=== PATIENT | male | born 1950 | race Caucasian/White ===

== ENCOUNTER 2023-03-22 14:54 | Emergency (ER) | payer MEDICARE, SELFPAY ==
[2023-03-22] VITALS (10 sets, daily range): BP systolic 132–155; BP diastolic 78–114; PULSE 60–71; RESP 18; TEMP 36.4; O2SAT 90–98; BMI 30.4
--- NOTE | 2023-03-22 15:14 | ED_ITS ---
HPI - General Adult General Time Seen by Provider: 15:14 <Maame Malik MD - Last Filed: 03/22/23 16:23> Date Seen: 03/22/23 <Maame Malik MD - Last Filed: 03/22/23 16:23> Chief complaint: Shoulder Injury/Pain <Maame Malik MD - Last Filed: 03/22/23 16:23> Stated complaint: L shoulder pain, shortness of breath <Maame Malik MD - Last Filed: 03/22/23 16:23> Time Seen by Provider: 03/22/23 15:11 <Maame Malik MD - Last Filed: 03/22/23 16:23> Source: patient and RN notes reviewed <Maame Malik MD - Last Filed: 03/22/23 16:23> Mode of arrival: ambulatory <Maame Malik MD - Last Filed: 03/22/23 16:23> Limitations: no limitations <Maame Malik MD - Last Filed: 03/22/23 16:23> History of Present Illness HPI narrative: This 72-year-old male was referred to the ER by clinic with shoulder pain that has been going on for about 3-4 weeks, some worsening of shortness of breath. 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 His left shoulder certainly has symptoms of pain with range of motion that he is convinced is musculoskeletal. He however has been having pain in bed just at night. He has not had any x-rays of the shoulder. There is no numbness tingling or weakness. There is no chest pain per se. 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 He had a 1st episode, was given a trial off of blood thinners after appropriate time frame and had a subsequent pulmonary embolus. He notes that he was drinking a lot of nutritional supplements that had vitamin K in at the time. His dad reportedly had blood clots as well. [place] himself was studied, had genetic testing, they never did find a source or etiology, he states his is idiopathic. He has been maintained on anticoagulation with Coumadin, denies any missed doses, states he gets routine INR checks. He is notice seen some progressive shortness of breath over time. He notes if he gets up in the middle night going to the bathroom and coming back, will feel winded. Just going up a flight of stairs he will feel much more winded. He notes he had a normal stress set go about a year and half ago. No prior cardiac history. Again no chest pain with this. He does not endorse any significant edema. Besides having history of blood clots, his dad reportedly from congestive heart failure. <Maame Malik MD - Last Filed: 03/22/23 16:23> Related Data Home medications: Home Medications Medication Instructions Recorded Confirmed warfarin 5 mg tablet 5 mg PO 07/17/22 Previous Rx's Medication Instructions Recorded furosemide 20 mg tablet (Lasix) 20 mg PO DAILY #14 tabs 03/22/23 <Maame Malik MD - Last Filed: 03/22/23 16:23> Allergies/adverse reactions: Allergies Allergy/AdvReac Type Severity Reaction Status Date / Time No Known Drug Allergies Allergy Verified 03/22/23 16:33 <Maame Malik MD - Last Filed: 03/22/23 16:23> Review of Systems Status of ROS: Reports: 6 or more systems reviewed and unremarkable except as noted in History and below <Maame Malik MD - Last Filed: 03/22/23 16:23> [facility] Social History: Social History Smoking Status: Never smoker How often do you have a drink containing alcohol: monthly or less How often do you have six or more drinks on one occasion: Never AUDIT-C Alcohol total score: 1 Non-prescribed substance use: denies use <Maame Malik MD - Last Filed: 03/22/23 16:23> Exam Const: Vital Signs, click to edit/add: Vital Signs - 24 hr 03/22/23 15:06 03/22/23 15:23 03/22/23 15:39 Temperature 97.6 F Pulse Rate 67 Pulse Rate [Right Pulse Oximeter] 69 Respiratory Rate 18 Blood Pressure 147/114 H Blood Pressure [Ri ght Upper Arm] 155/78 H Pulse Oximetry 97 96 97 Oxygen Delivery Me thod Room Air 03/22/23 15:40 03/22/23 15:45 03/22/23 16:00 Temperature Pulse Rate 67 71 66 Pulse Rate [Right Pulse Oximeter] Respiratory Rate Blood Pressure Blood Pressure [Ri ght Upper Arm] Pulse Oximetry 96 90 96 Oxygen Delivery Me thod 03/22/23 16:02 03/22/23 16:03 03/22/23 16:15 Temperature Pulse Rate 61 64 71 Pulse Rate [Right Pulse Oximeter] Respiratory Rate Blood Pressure 132/92 H Blood Pressure [Ri ght Upper Arm] Pulse Oximetry 98 97 96 Oxygen Delivery Me thod 03/22/23 16:45 Temperature Pulse Rate 60 Pulse Rate [Right Pulse Oximeter] Respiratory Rate Blood Pressure Blood Pressure [Ri ght Upper Arm] Pulse Oximetry 97 Oxygen Delivery Me thod [place] is a 72-year-old male that is alert, interactive, no apparent distress. Sclera clear, face atraumatic, speech is normal. Lungs are clear, good air entry, no wheezing or crackles. CV regular rate and rhythm with ectopy heard, no murmur, normal S1-S2, no S3-S4. No lower extremity edema, has a little bit of a sock line but really no appreciable pitting edema. Abdomen is soft, no pain on palpation of his clavicle or AC joint. He does not have pain when I do arc of abduction but when I do impingement testing of the rotator cuff, that does reproduce some of his pain. Neurovascular is definitely intact in this arm. He does have limitations of full extension at both elbows which is not new for him, states this is from his orthopedic injuries from gymnastics. <Maame Malik MD - Last Filed: 03/22/23 16:23> Vital Signs, click to edit/add: Vital Signs - 24 hr 03/22/23 15:06 03/22/23 15:23 03/22/23 15:39 Temperature 97.6 F Pulse Rate 67 Pulse Rate [Right Pulse Oximeter] 69 Respiratory Rate 18 Blood Pressure 147/114 H Blood Pressure [Ri ght Upper Arm] 155/78 H Pulse Oximetry 97 96 97 Oxygen Delivery Me thod Room Air 03/22/23 15:40 03/22/23 15:45 03/22/23 16:00 Temperature Pulse Rate 67 71 66 Pulse Rate [Right Pulse Oximeter] Respiratory Rate Blood Pressure Blood Pressure [Ri ght Upper Arm] Pulse Oximetry 96 90 96 Oxygen Delivery Me thod 03/22/23 16:02 03/22/23 16:03 03/22/23 16:15 Temperature Pulse Rate 61 64 71 Pulse Rate [Right Pulse Oximeter] Respiratory Rate Blood Pressure 132/92 H Blood Pressure [Ri ght Upper Arm] Pulse Oximetry 98 97 96 Oxygen Delivery Me thod 03/22/23 16:45 Temperature Pulse Rate 60 Pulse Rate [Right Pulse Oximeter] Respiratory Rate Blood Pressure Blood Pressure [Ri ght Upper Arm] Pulse Oximetry 97 Oxygen Delivery Me thod <Gallito Middleton MD - Last Filed: 03/22/23 17:29> Documenting provider has reviewed patient's vital signs: yes <Maame Malik MD - Last Filed: 03/22/23 16:23> Course Course ED Course: Reviewed with patient that I certainly think he does have musculoskeletal changes in his shoulder. We will x-ray to see if there is underlying arthritis. He certainly may have rotator cuff or ligamentous injury which ultimately he would be better defined by MRI but is not emergently indicated out of the ER. 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 As for recurrent pulmonary emboli, we did discuss that it is unlikely if he has been on chronically well maintained Coumadin. He is concerned, discussed the option of just proceeding with a chest CT PE protocol. He would like to do so. Will get full complement of labs including an INR. We did discuss complications of people with pulmonary emboli and development of such things like pulmonary hypertension. We cannot diagnose this but it would be a consideration. If workup here is negative, could talk to his primary care provider about next step such as proceeding with an echo outpatient. <Maame Malik MD - Last Filed: 03/22/23 16:23> Reevaluation(s) Time of Reevaluation #1: 17:25 <Gallito Middleton MD - Last Filed: 03/22/23 17:29> Reevaluation #1: Patient accepted in sign-out from prior provider. Briefly, 72-year-old male with history of pulmonary embolism currently anticoagulated comes in with left shoulder pain. Seems most consistent with musculoskeletal pain and chest x-ray independently interpreted by me demonstrates findings of calcific tendinitis. CT PE study does not demonstrate pulmonary embolism, there is some is a continuation of the lungs and reflux of the contrast in the padded veins suggestive of right heart pressure elevation, this could represent some mild congestive heart failure but patient has no lower extremity swelling, orthopnea, and is stable for discharge with outpatient follow-up, will be started on a low- dose of Lasix as he does have some shortness of breath. Recommend follow-up with primary care for echocardiogram. <Gallito Middleton MD - Last Filed: 03/22/23 17:29> Vital Signs Vital signs: Initial Vital Signs Temperature 97.6 F 03/22/23 15:06 Temperature Source Temporal Artery Scan 03/22/23 15:06 Pulse Rate 69 03/22/23 15:06 Respiratory Rate 18 03/22/23 15:06 Blood Pressure 155/78 H 03/22/23 15:06 Blood Pressure Mean 103 03/22/23 15:06 Blood Pressure Position Sitting 03/22/23 15:06 Pulse Oximetry 97 03/22/23 15:06 Oxygen Delivery Method Room Air 03/22/23 15:06 Vital Signs Temperature 97.6 F 03/22/23 15:06 Pulse Rate 69 03/22/23 15:06 Respiratory Rate 18 03/22/23 15:06 Blood Pressure 155/78 H 03/22/23 15:06 Pulse Oximetry 97 03/22/23 15:06 Oxygen Delivery Method Room Air 03/22/23 15:06 Temperature 97.6 F 03/22/23 15:06 Pulse Rate 60 03/22/23 16:45 Respiratory Rate 18 03/22/23 15:06 Blood Pressure 132/92 H 03/22/23 16:02 Pulse Oximetry 97 03/22/23 16:45 Oxygen Delivery Method Room Air 03/22/23 15:06 <Maame Malik MD - Last Filed: 03/22/23 16:23> Initial Vital Signs Temperature 97.6 F 03/22/23 15:06 Temperature Source Temporal Artery Scan 03/22/23 15:06 Pulse Rate 69 03/22/23 15:06 Respiratory Rate 18 03/22/23 15:06 Blood Pressure 155/78 H 03/22/23 15:06 Blood Pressure Mean 103 03/22/23 15:06 Blood Pressure Position Sitting 03/22/23 15:06 Pulse Oximetry 97 03/22/23 15:06 Oxygen Delivery Method Room Air 03/22/23 15:06 Vital Signs Temperature 97.6 F 03/22/23 15:06 Pulse Rate 69 03/22/23 15:06 Respiratory Rate 18 03/22/23 15:06 Blood Pressure 155/78 H 03/22/23 15:06 Pulse Oximetry 97 03/22/23 15:06 Oxygen Delivery Method Room Air 03/22/23 15:06 Temperature 97.6 F 03/22/23 15:06 Pulse Rate 60 03/22/23 16:45 Respiratory Rate 18 03/22/23 15:06 Blood Pressure 132/92 H 03/22/23 16:02 Pulse Oximetry 97 03/22/23 16:45 Oxygen Delivery Method Room Air 03/22/23 15:06 <Gallito Middleton MD - Last Filed: 03/22/23 17:29> Medical Decision Making Lab Data Lab results reviewed: Yes I reviewed the patient's lab results <Maame Malik MD - Last Filed: 03/22/23 16:23> Labs: Lab Results 03/22/23 03/22/23 Range/Units 15:30 15:48 WBC 6.15 (4.50-11.00) K/uL RBC 4.80 (4.30-5.90) m/uL Hgb 15.3 (13.5-17.5) gm/dL Hct 46.8 (37.0-53.0) % MCV 98 (80-100) fL MCH 32 (26-34) pg MCHC 33 (32-36) gm/dL RDW Coeff of Edwardo 13.1 (11.5-15.5) % Plt Count 224 (140-440) K/uL Neut % (Auto) 61.4 (42.0-72.0) % Lymph % (Auto) 23.1 (20-44) % [place] % (Auto) 10.9 (0.0-11.0) % Eos % (Auto) 3.9 (0.0-7.0) % Baso % (Auto) 0.5 (0.0-3.0) % Neut # (Auto) 3.78 (1.7-7.0) K/uL Lymph # (Auto) 1.42 (0.90-2.90) K/uL [place] # (Auto) 0.70 (0.00-0.90) K/UL Eos # (Auto) 0.24 (0.00-0.50) K/uL Baso # (Auto) 0.03 (0.00-0.30) K/uL Abs Immat Gran (auto) 0.01 (0.00-0.30) K/uL Imm/Tot Granulo (auto) 0.2 % INR 2.00 H (0.91-1.10) VBG pH 7.342 (7.32-7.43) VBG pCO2 53 H (40-50) mmHG VBG pO2 27.3 (25-47) mmHG VBG HCO3 29 H (21-28) mmol/L Sodium 136 (135-149) mmol/L Potassium 4.4 (3.6-5.1) mmol/L Chloride 106 (96-114) mmol/L Carbon Dioxide 25 (20-32) mmol/L Anion Gap 5 L (7-15) mEq/L BUN 21 (7-30) mg/dL Creatinine 0.9 (0.5-1.5) mg/dL Estimated Creat Clear 64.60 Estimated GFR 91 ml/min Glucose 83 (60-115) mg/dL Calcium 8.7 (8.4-10.6) mg/dL Total Bilirubin 0.8 (0.1-1.5) mg/dL AST 32 (12-35) U/L ALT 30 (4-50) U/L Alkaline Phosphatase 79 (40-150) U/L Troponin I < 0.01 L (0.01-0.04) ng/mL Total Protein 7.9 (6.0-8.3) g/dL Albumin 4.4 (3.3-5.0) g/dL POC Creatinine 1.1 (0.6-1.3) mg/dl <Maame Malik MD - Last Filed: 03/22/23 16:23> Lab Results 03/22/23 03/22/23 Range/Units 15:30 15:48 WBC 6.15 (4.50-11.00) K/uL RBC 4.80 (4.30-5.90) m/uL Hgb 15.3 (13.5-17.5) gm/dL Hct 46.8 (37.0-53.0) % MCV 98 (80-100) fL MCH 32 (26-34) pg MCHC 33 (32-36) gm/dL RDW Coeff of Edwardo 13.1 (11.5-15.5) % Plt Count 224 (140-440) K/uL Neut % (Auto) 61.4 (42.0-72.0) % Lymph % (Auto) 23.1 (20-44) % [place] % (Auto) 10.9 (0.0-11.0) % Eos % (Auto) 3.9 (0.0-7.0) % Baso % (Auto) 0.5 (0.0-3.0) % Neut # (Auto) 3.78 (1.7-7.0) K/uL Lymph # (Auto) 1.42 (0.90-2.90) K/uL [place] # (Auto) 0.70 (0.00-0.90) K/UL Eos # (Auto) 0.24 (0.00-0.50) K/uL Baso # (Auto) 0.03 (0.00-0.30) K/uL Abs Immat Gran (auto) 0.01 (0.00-0.30) K/uL Imm/Tot Granulo (auto) 0.2 % INR 2.00 H (0.91-1.10) VBG pH 7.342 (7.32-7.43) VBG pCO2 53 H (40-50) mmHG VBG pO2 27.3 (25-47) mmHG VBG HCO3 29 H (21-28) mmol/L Sodium 136 (135-149) mmol/L Potassium 4.4 (3.6-5.1) mmol/L Chloride 106 (96-114) mmol/L Carbon Dioxide 25 (20-32) mmol/L Anion Gap 5 L (7-15) mEq/L BUN 21 (7-30) mg/dL Creatinine 0.9 (0.5-1.5) mg/dL Estimated Creat Clear 64.60 Estimated GFR 91 ml/min Glucose 83 (60-115) mg/dL Calcium 8.7 (8.4-10.6) mg/dL Total Bilirubin 0.8 (0.1-1.5) mg/dL AST 32 (12-35) U/L ALT 30 (4-50) U/L Alkaline Phosphatase 79 (40-150) U/L Troponin I < 0.01 L (0.01-0.04) ng/mL Total Protein 7.9 (6.0-8.3) g/dL Albumin 4.4 (3.3-5.0) g/dL POC Creatinine 1.1 (0.6-1.3) mg/dl <Gallito Middleton MD - Last Filed: 03/22/23 17:29> ECG Data Attestation: I personally reviewed and interpreted this ECG as follows: (Sinus rhythm, 71 beats per minute. Unifocal occasional PVC seen. Right bundle branch block. No definitive ischemic change noted. QT corrected 465 milliseconds.) <Maame Malik MD - Last Filed: 03/22/23 16:23> Discharge Plan Discharge Clinical Impression: Shortness of breath, Hx of pulmonary embolus Left shoulder pain Qualifiers: Chronicity: acute Qualified Code(s): M25.512 - Pain in left shoulder <Maame Malik MD - Last Filed: 03/22/23 16:23> Patient Disposition: Home, Self-Care <Maame Malik MD - Last Filed: 03/22/23 16:23> Condition: Stable <Maame Malik MD - Last Filed: 03/22/23 16:23> Instructions: Shoulder Pain (ED), Shortness of Breath (ED) <Maame Malik MD - Last Filed: 03/22/23 16:23> Additional Instructions: Need to continue taking your anticoagulation. Follow up in clinic for further review of your shoulder pain. You certainly on examination have a component that suggests rotator cuff pathology. This should be further evaluated and worked up through clinic. Review handouts, can take Tylenol 1000 mg scheduled 3 times a day for pain control. Would recommend trying to take this and review further pain management if this is not working at your follow-up with your primary. For the shortness of breath, would recommend outpatient echo be done. If you are continuing to have shortness of breath other studies such as pulmonary function tests could always be considered as well. No recurrent pulmonary emboli found here on CT imaging, no other etiology found. Your INR was 2 here today in the ER, please update your clinic. <Maame Malik MD - Last Filed: 03/22/23 16:23> Activity Level: Activity as Tolerated <Maame Malik MD - Last Filed: 03/22/23 16:23> Activity as Tolerated <Gallito Middleton MD - Last Filed: 03/22/23 17:29> Discharge Diet: Heart Healthy (2 gm sodium, low fat) <Maame Malik MD - Last Filed: 03/22/23 16:23> Heart Healthy (2 gm sodium, low fat) <Gallito Middleton MD - Last Filed: 03/22/23 17:29> Prescriptions: New furosemide [Lasix] 20 mg tablet 20 mg PO DAILY Qty: 14 0RF No Action warfarin 5 mg tablet 5 mg PO <Maame Malik MD - Last Filed: 03/22/23 16:23> Follow Up/Referrals: Lorena Klein PA-C [Primary Care Provider] - <Maame Malik MD - Last Filed: 03/22/23 16:23> Stand Alone Forms: My[facility] Info Instructions <Maame Malik MD - Last Filed: 03/22/23 16:23>
--- NOTE | 2023-03-22 15:22 | CRLHL7_ITS ---
For Patients: As a result of the Century Cures Act, medical imaging exams and procedure reports are released immediately into your electronic medical record. You may view this report before your referring provider. If you have questions, please contact your health care provider. Indication: Pain. Technique: Three views. Comparison: None. Findings/Impression: Three views of the left shoulder demonstrate no acute fracture, dislocation or suspicious bony lesion. Corticated ossific density adjacent to the clavicular head = sequela of prior trauma. Calcifications overlie the supra/infraspinatus tendons consistent with calcific tendinopathy. There are mild degenerative changes within the glenohumeral joint. Visualized lungs are clear. Dictated by Ag Moralez MD @ 03/22/2023 4:56:04 PM (Electronically Signed)
--- NOTE | 2023-03-22 15:23 | CRLHL7_ITS ---
For Patients: As a result of the Century Cures Act, medical imaging exams and procedure reports are released immediately into your electronic medical record. You may view this report before your referring provider. If you have questions, please contact your health care provider. INDICATION: Shortness of breath. TECHNIQUE: CT chest PE was acquired with 95 cc Isovue 370 IV contrast. COMPARISON: None. FINDINGS: Heart and vasculature: Contrast opacification of the pulmonary arterial tree is adequate. No sign of pulmonary embolism. Prominent heart size. Reflux of contrast into the hepatic veins suggestive of elevated right heart pressures. Thoracic aorta and pulmonary artery are normal in caliber. Lungs and pleura: Scattered atelectasis. No suspicious nodules or infiltrates. No pleural effusions, pleural thickening, or pneumothorax. Lymph nodes/mediastinum: No mediastinal, hilar, or axillary adenopathy. Chest wall: No masses. Upper abdomen: No acute or significant findings. Bones: Unremarkable for age. IMPRESSION: No pulmonary embolism. Some mosaic attenuation throughout the lungs which could suggest small vessel/airway disease or minimal pulmonary edema. No focal consolidations. Reflux of contrast into the hepatic veins suggestive of elevated right heart pressures. Please note that all CT scans at this facility use dose modulation, iterative reconstruction, and/or weight-based dosing when appropriate to reduce radiation dose to as low as reasonably achievable. Dictated by Butch Hernández MD @ 03/22/2023 5:15:02 PM (Electronically Signed)
[2023-03-22 15:42] LABS: HCO3 VBG 29 mmol/L (21-28); PCO2 VBG 53 mmHG (40-50); PO2 VBG 27.3 mmHG (25-47); pH VBG 7.342 (7.32-7.43)
[2023-03-22 15:48] LABS: Basophils Absolute Auto 0.03 K/uL (0.00-0.30); Basophils Percent Auto 0.5 % (0.0-3.0); Eosinophils Absolute Auto 0.24 K/uL (0.00-0.50); Eosinophils Percent Auto 3.9 % (0.0-7.0); Hematocrit 46.8 % (37.0-53.0); Hemoglobin* 15.3 gm/dL (13.5-17.5); Immature Granulocytes Abs Auto 0.01 K/uL (0.00-0.30); Immature Granulocytes Pct Auto 0.2 %; Lymphocytes Absolute Auto 1.42 K/uL (0.90-2.90); Lymphocytes Percent Auto 23.1 % (20-44); Mean Corpuscular HGB Conc 33 gm/dL (32-36); Mean Corpuscular Hemoglobin 32 pg (26-34); Mean Corpuscular Volume 98 fL (80-100); Monocytes Percent Auto 10.9 % (0.0-11.0); Neutrophils Absolute Auto 3.78 K/uL (1.7-7.0); Neutrophils Percent Auto 61.4 % (42.0-72.0); Platelet Count* 224 K/uL (140-440); RDW Coefficient of Variation % 13.1 % (11.5-15.5); White Blood Count* 6.15 K/uL (4.50-11.00)
[2023-03-22 15:49] LABS: Creatinine, Point-of-Care* 1.1 mg/dl (0.6-1.3)
[2023-03-22 15:50] LABS: Slide Review Reflex No
[2023-03-22 15:57] LABS: Albumin* 4.4 g/dL (3.3-5.0)
[2023-03-22 15:58] LABS: Chloride* 106 mmol/L (96-114); Potassium* 4.4 mmol/L (3.6-5.1); Sodium* 136 mmol/L (135-149)
[2023-03-22 16:00] LABS: Bilirubin Total* 0.8 mg/dL (0.1-1.5); Creatinine* 0.9 mg/dL (0.5-1.5); Estimated Glomerular Filt Rate 91 ml/min
[2023-03-22 16:01] LABS: Alanine Aminotransferase* 30 U/L (4-50); Alkaline Phosphatase* 79 U/L (40-150); Anion Gap 5 mEq/L (7-15); Aspartate Amino Transferase* 32 U/L (12-35); Blood Urea Nitrogen* 21 mg/dL (7-30); Calcium* 8.7 mg/dL (8.4-10.6); Carbon Dioxide* 25 mmol/L (20-32); Glucose* 83 mg/dL (60-115); Prothrombin Time 24.1 Seconds; Total Protein* 7.9 g/dL (6.0-8.3)
[2023-03-22 16:18] LABS: Troponin I* < 0.01 ng/mL (0.01-0.04)
== END 2023-03-22 17:38 | disposition home or self-care (01) ==
PROVIDERS: Family Medicine; Emergency Provider Family Medicine; PCP Physician Assistant Medical
DX: R06.02 Shortness of breath (principal); M25.512 Pain in left shoulder; Z86.711 Personal history of pulmonary embolism
CPT/HCPCS: 36415; 71275; 73030; 80053; 82565; 82803; 84484; 85025; 85610; 93005; 94761; 99284; 99285; Q9967

== ENCOUNTER 2024-04-16 09:30 | Outpatient (RCR) | payer MEDICARE, SELFPAY | END 2024-04-16 11:06 | disposition home or self-care (01) | PROVIDERS: PCP Physician Assistant Medical; Visit Provider Orthopaedic Surgery Adult Reconstructive Orthopaedic Surgery | DX: M17.0 Bilateral primary osteoarthritis of knee (principal); Z96.651 Presence of right artificial knee joint; R53.1 Weakness; R26.81 Unsteadiness on feet; Z74.09 Other reduced mobility; Z51.89 Encounter for other specified aftercare | CPT/HCPCS: 97110; 97112; 97116; 97140; 97161 ==

== ENCOUNTER 2024-08-27 08:30 | Outpatient (RCR) | payer MEDICARE, SELFPAY | END 2024-08-27 13:41 | disposition home or self-care (01) | PROVIDERS: PCP Physician Assistant Medical; Visit Provider Orthopaedic Surgery Adult Reconstructive Orthopaedic Surgery | DX: Z51.89 Encounter for other specified aftercare (principal); Z47.1 Aftercare following joint replacement surgery; Z96.652 Presence of left artificial knee joint | CPT/HCPCS: 97110; 97112; 97116; 97140; 97161 ==